=== PATIENT | female | born 1970 | race Two or more races ===

== ENCOUNTER 2020-02-13 20:26 | Emergency (ER) | payer MEDICAID ==
[~2020-02-13] VITALS: Ht 160 cm; Wt 91.0 kg
[2020-02-13] MEDS ORDERED: MORPHINE SULFATE 2 MG/ML CPJ (NOT FOR IM USE) IV ONE ×2 (21:15→22:30)
[2020-02-13 22:07] LABS: BASOPHILS % 0.5 % (0.0-2.0); EOSINOPHILS % 2.2 % (0.0-5.0); HEMATOCRIT. 38.8 % (36.0-48.0); HEMOGLOBIN. 13.1 g/dL (12.0-16.0); LYMPHOCYTES % 24.9 % (20.0-50.0); MEAN CORPUSCULAR HEMOGLOBIN 29.7 pg (28.0-32.0); MEAN CORPUSCULAR VOLUME 87.8 fL (81.0-99.0); MEAN PLATELET VOLUME 8.3 fl (7.4-10.4); MONOCYTES % 10.2 % (2.0-8.0); NEUTROPHILS % 62.2 % (40.0-76.0); PLATELET 242 x1000/uL (130-400); RED BLOOD CELL COUNT 4.42 mill/uL (4.2-5.4); RED CELL DISTRIBUTION WIDTH 13.2 % (11.6-14.6)
[2020-02-13 22:13] LABS: CHLORIDE 107 mEq/L (98-107)
[2020-02-13 22:19] LABS: HCG SCREEN NEGATIVE
[2020-02-13] MEDS ORDERED: ONDANSETRON HCL 4MG/2ML INJ IV STA (23:03)
[2020-02-13] MEDS ORDERED: MORPHINE SULFATE 4 MG/ML CPJ (NOT FOR IM USE) IV STA (23:03)
[2020-02-14] MEDS ORDERED: ETOMIDATE 2MG/ML 10ML VIAL IV ONE
[2020-02-14] MEDS ORDERED: MORPHINE SULFATE 4 MG/ML CPJ (NOT FOR IM USE) IV ONE
[2020-02-14] MEDS ORDERED: IOHEXOL-300 100 ML BOTTLE ONE (01:42)
[2020-02-14] MEDS ORDERED: MORPHINE SULFATE 2 MG/ML CPJ (NOT FOR IM USE) IV ONE (03:15)
[2020-02-14] MEDS ORDERED: OXYCODONE HCL/ACETAMINOPHEN 5/325MG TABLET PO ONE (07:15)
[2020-02-14 08:00] VITALS: BP 181/89
== END 2020-02-14 09:34 | disposition short-term general hospital (02) ==
LOC: ER 20:26
DX: S52.501A Unspecified fracture of the lower end of right radius, initial encounter for closed fracture (principal); S63.074A Dislocation of distal end of right ulna, initial encounter; M19.90 Unspecified osteoarthritis, unspecified site; M41.9 Scoliosis, unspecified; V43.52XA Car driver injured in collision with other type car in traffic accident, initial encounter; Y93.89 Activity, other specified; Y92.410 Unspecified street and highway as the place of occurrence of the external cause; Z88.0 Allergy status to penicillin
CPT/HCPCS: 25605; 36415; 70450; 71260; 72125; 72128; 72131; 72170; 73080; 73090; 73110; 73590; 74177; 80053; 83690; 84703; 85025; 96374; 99152; 99285; J2270; J2405; J3490; Q9967